=== PATIENT | female | born 1985 | race Caucasian/White ===

== ENCOUNTER 2023-05-04 01:30 | Emergency (ER) | payer OTHER, MEDICAID ==
[~2023-05-04] VITALS: Ht 61 cm; Wt 36.3 kg
[2023-05-04 01:44] VITALS: BP 104/62; PULSE 131; RESP 18; TEMP 98.5; O2SAT 97
[2023-05-04 06:10] VITALS: BP 122/86; PULSE 105; RESP 17; TEMP 97.7; O2SAT 100
== END 2023-05-04 06:10 ==
LOC: MED 01:30
DX: T85.528A Displacement of other gastrointestinal prosthetic devices, implants and grafts, initial encounter (principal); R00.0 Tachycardia, unspecified; Z91.040 Latex allergy status; Z91.048 Other nonmedicinal substance allergy status; Z91.013 Allergy to seafood; Z88.8 Allergy status to other drugs, medicaments and biological substances; Z88.1 Allergy status to other antibiotic agents; Y83.1 Surgical operation with implant of artificial internal device as the cause of abnormal reaction of the patient, or of later complication, without mention of misadventure at the time of the procedure
CPT/HCPCS: 71045; 99285; Q0092

== ENCOUNTER 2023-09-21 19:12 | Emergency (ER) | payer OTHER, MEDICAID ==
[~2023-09-21] VITALS: Ht 157.5 cm; Wt 44.9 kg
[2023-09-21 19:25] VITALS: PULSE 126; PULSE 128; RESP 13; O2SAT 96; O2SAT 97; O2SAT 98
[2023-09-21 19:29] VITALS: BP 131/92; PULSE 112; RESP 14; TEMP 99.1; O2SAT 99
[2023-09-21 20:07] VITALS: TEMP 99.1
[2023-09-21 22:33] VITALS: BP 128/91; RESP 14
[2023-09-21 23:09] VITALS: PULSE 117; O2SAT 99
== END 2023-09-22 01:15 | disposition home or self-care (01) ==
LOC: MED 19:12
DX: K94.23 Gastrostomy malfunction (principal); Z91.040 Latex allergy status; Z91.013 Allergy to seafood; Z88.8 Allergy status to other drugs, medicaments and biological substances; Z88.1 Allergy status to other antibiotic agents; Z91.048 Other nonmedicinal substance allergy status
CPT/HCPCS: 43762; 74240; 99285; Q9967